=== PATIENT | male | born 2000 | race Caucasian/White ===

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

== ENCOUNTER 2018-07-26 08:34 | Emergency (ER) | payer BC, OTHER ==
[2018-07-26 08:46] VITALS: BP 88/57; PULSE 76; RESP 16; TEMP 98.3
--- NOTE | 2018-07-26 09:10 | ED ---
General Adult HPI - General Chief complaint: Urogenital Stated complaint: Cannot Urinate Source: family, RN notes reviewed Mode of arrival: wheelchair Limitations: altered mental status - History of Present Illness Initial comments: This a 17-year-old male with mother with a history of cerebral palsy presents emergency Department with complaint of not urinating. Mom states that he usually does not urinate for several hours or maybe only once or twice a day but states that he woke up with a dry diaper on Friday mom states that he still has not gone today. Mom states that he does retain quite a bit. She states that when he finally goes; was everywhere and soaks through his diaper. Patient appears to be slightly uncomfortable. No fever or chills a feeding well. Mom states his been no change in his mentation. Mom states that she is also been dealing with on-and-off rash and which I think is medication induced. Patient states that it comes and goes in different areas and has not bothered by it. Mother states that he does have some underlying constipation though his been going on a regular basis. - Related Data Home Medications Medication Instructions Recorded Confirmed Baclofen [Lioresal] 30 mg PEG/G-TUBE TID 06/27/16 11/19/16 Clobazam [Onfi] 15 mg PEG/G-TUBE BID 06/27/16 11/19/16 Polyethylene Glycol 3350 [Miralax] 17 - 22 gm PEG/G-TUBE DAILY PRN 06/27/16 11/19/16 Rufinamide [Banzel] 1,000 mg PEG/G-TUBE BID 06/27/16 11/19/16 lamoTRIgine [LaMICtal] 400 mg PEG/G-TUBE BID 06/27/16 11/19/16 levETIRAcetam [Keppra] 1,500 mg PEG/G-TUBE HS 06/27/16 11/19/16 levETIRAcetam [Keppra] 2,000 mg PEG/G-TUBE QAM 06/27/16 11/19/16 Albuterol Nebulized [Ventolin 2.5 mg INHALATION RT-BID PRN 11/19/16 11/19/16 Nebulized] Doxycycline Hyclate [Vibramycin] 100 mg PO BID 11/19/16 11/19/16 Lansoprazole [Prevacid] 30 mg PEG/G-TUBE DAILY 11/19/16 11/19/16 Mupirocin 2% Oint [Bactroban 2% 1 applic TOPICAL DAILY PRN 11/19/16 11/19/16 Oint] Nystatin 100,000Unit/gm Cream 1 applic TOPICAL DAILY PRN 11/19/16 11/19/16 [Mycostatin Cream] Ondansetron [Zofran ODT] 8 mg PO Q8HR PRN 11/19/16 11/19/16 Previous Rx's Medication Instructions Recorded Amoxic-Pot Clav 400-57Mg/5Ml 5 ml PO Q8H #150 bottle 11/19/16 [Augmentin 400-57 mg/5 ml Liquid] Allergies Allergy/AdvReac Type Severity Reaction Status Date / Time No Known Allergies Allergy Verified 07/26/18 08:46 Review of Systems ROS Statement: Those systems with pertinent positive or pertinent negative responses have been documented in the HPI. ROS Other: All systems not noted in ROS Statement are negative. Past Medical History Past Medical History: GERD/Reflux, Seizure Disorder Additional Past Medical History / Comment(s): CP, seizure disorder, failure to thrive, feeding tube. History of Any Multi-Drug Resistant Organisms: None Reported Additional Past Surgical History / Comment(s): feeding tube Past Psychological History: No Psychological Hx Reported Smoking Status: Never smoker Past Alcohol Use History: None Reported Past Drug Use History: None Reported General Exam Limitations: altered mental status General appearance: alert, in no apparent distress Head exam: Present: atraumatic, normocephalic, normal inspection Respiratory exam: Present: normal lung sounds bilaterally. Absent: respiratory distress, wheezes, rales, rhonchi, stridor Cardiovascular Exam: Present: regular rate, normal rhythm, normal heart sounds. Absent: systolic murmur, diastolic murmur, rubs, gallop, clicks GI/Abdominal exam: Present: soft, distended, tenderness (Minimal suprapubic ), normal bowel sounds. Absent: guarding, rebound, rigid Skin exam: Present: warm, dry, intact, normal color. Absent: rash Course Vital Signs 07/26/18 08:42 Temperature 98.3 F Pulse Rate 76 Respiratory 16 Rate Blood Pressure 88/57 O2 Sat by Pulse 100 Oximetry Medical Decision Making - Medical Decision Making 17-year-old male presents from for unable to urinate. Patient does have a history of cerebral palsy Robles catheter was placed, 1400mls of urine out. Patient is otherwise stable be discharged. - Lab Data Lab Results 07/26/18 Range/Units 10:00 Urine Color Yellow Urine Appearance Clear (Clear) Urine pH 6.0 (5.0-8.0) Ur Specific [place] 1.024 (1.001-1.035) Urine Protein Negative (Negative) Urine Glucose (UA) Negative (Negative) Urine Ketones Negative (Negative) Urine Blood Negative (Negative) Urine Nitrite Negative (Negative) Urine Bilirubin Negative (Negative) Urine Urobilinogen <2.0 (<2.0) mg/dL Ur Leukocyte Esterase Negative (Negative) Disposition Clinical Impression: Urinary retention Disposition: HOME SELF-CARE Condition: Stable Instructions (If sedation given, give patient instructions): Urinary Retention in Men (ED) Additional Instructions: Please return to the Emergency Department if symptoms worsen or any other concerns. Is patient prescribed a controlled substance at d/c from ED?: No Referrals: Kirk Avalos MD [Primary Care Provider] - 1-2 days Solo Campo MD [STAFF PHYSICIAN] - 1-2 days Time of Disposition: 11:13
[2018-07-26 10:49] LABS: Appearance,Urine Clear (Clear); Bilirubin,Urine Negative (Negative); Blood,Urine Negative (Negative); Color,Urine Yellow; Glucose,Urine (UA) Negative (Negative); Ketones,Urine Negative (Negative); Leukocyte Esterase,Urine Negative (Negative); Nitrite,Urine Negative (Negative); Protein,Urine Negative (Negative); Specific Gravity,Urine 1.024 (1.001-1.035); Urobilinogen,Urine <2.0 mg/dL (<2.0)
== END 2018-07-26 12:04 | disposition home or self-care (01) ==
LOC: EC 08:34
DX: N39.0 Urinary tract infection, site not specified (principal); G40.909 Epilepsy, unspecified, not intractable, without status epilepticus; Z79.899 Other long term (current) drug therapy; Z86.69 Personal history of other diseases of the nervous system and sense organs
CPT/HCPCS: 51702; 81003; 99283

== ENCOUNTER 2018-09-05 12:07 | Emergency (ER) | payer BC, OTHER ==
[2018-09-05 12:38] VITALS: BP 102/68; PULSE 62; RESP 18; TEMP 97.8
[2018-09-05 13:43] LABS: Amorphous Sediment,Urine Moderate /hpf; Appearance,Urine Cloudy (Clear); Bilirubin,Urine Negative (Negative); Blood,Urine Negative (Negative); Calcium Oxalate Crystals,Urine Occasional /hpf; Color,Urine Yellow; Glucose,Urine (UA) Negative (Negative); Ketones,Urine Negative (Negative); Leukocyte Esterase,Urine Negative (Negative); Mucus,Urine Few /hpf; Nitrite,Urine Negative (Negative); PH, Urine 6.5 (5.0-8.0); Protein,Urine Trace (Negative); Specific Gravity,Urine 1.031 (1.001-1.035); Squamous Epithelial Cell,Urine 1 /hpf (0-4); Urobilinogen,Urine <2.0 mg/dL (<2.0)
--- NOTE | 2018-09-05 13:57 | ED ---
General Adult HPI - General Chief complaint: Urogenital Stated complaint: No urine output >38 hrs Time Seen by Provider: 09/05/18 12:41 Source: family, RN notes reviewed Mode of arrival: wheelchair Limitations: altered mental status, physical limitation - History of Present Illness Initial comments: 18-year-old male with cerebral palsy history presents to the emergency department for a chief complaint of urinary retention 48 hours. Father states that this does happen occasionally. States he usually only urinates one to 2 times per day. However this isn't normal for him. Patient restraints the same thing a few weeks ago and had a straight catheterization done. Father denies any signs of distress and the patient, denies any fevers or chills.Patient has no other complaints at this time including shortness of breath, chest pain, abdominal pain, nausea or vomiting, headache, or visual changes. - Related Data Home Medications Medication Instructions Recorded Confirmed Baclofen [Lioresal] 30 mg PEG/G-TUBE TID 06/27/16 11/19/16 Clobazam [Onfi] 15 mg PEG/G-TUBE BID 06/27/16 11/19/16 Polyethylene Glycol 3350 [Miralax] 17 - 22 gm PEG/G-TUBE DAILY PRN 06/27/16 11/19/16 Rufinamide [Banzel] 1,000 mg PEG/G-TUBE BID 06/27/16 11/19/16 lamoTRIgine [LaMICtal] 400 mg PEG/G-TUBE BID 06/27/16 11/19/16 levETIRAcetam [Keppra] 1,500 mg PEG/G-TUBE HS 06/27/16 11/19/16 levETIRAcetam [Keppra] 2,000 mg PEG/G-TUBE QAM 06/27/16 11/19/16 Albuterol Nebulized [Ventolin 2.5 mg INHALATION RT-BID PRN 11/19/16 11/19/16 Nebulized] Doxycycline Hyclate [Vibramycin] 100 mg PO BID 11/19/16 11/19/16 Lansoprazole [Prevacid] 30 mg PEG/G-TUBE DAILY 11/19/16 11/19/16 Mupirocin 2% Oint [Bactroban 2% 1 applic TOPICAL DAILY PRN 11/19/16 11/19/16 Oint] Nystatin 100,000Unit/gm Cream 1 applic TOPICAL DAILY PRN 11/19/16 11/19/16 [Mycostatin Cream] Ondansetron [Zofran ODT] 8 mg PO Q8HR PRN 11/19/16 11/19/16 Previous Rx's Medication Instructions Recorded Amoxic-Pot Clav 400-57Mg/5Ml 5 ml PO Q8H #150 bottle 11/19/16 [Augmentin 400-57 mg/5 ml Liquid] Allergies Allergy/AdvReac Type Severity Reaction Status Date / Time No Known Allergies Allergy Verified 09/05/18 12:38 Review of Systems ROS Statement: Those systems with pertinent positive or pertinent negative responses have been documented in the HPI. ROS Other: All systems not noted in ROS Statement are negative. Past Medical History Past Medical History: GERD/Reflux, Seizure Disorder Additional Past Medical History / Comment(s): CP, seizure disorder, failure to thrive, feeding tube. History of Any Multi-Drug Resistant Organisms: None Reported Additional Past Surgical History / Comment(s): feeding tube Past Psychological History: No Psychological Hx Reported Smoking Status: Never smoker Past Alcohol Use History: None Reported Past Drug Use History: None Reported General Exam Limitations: altered mental status, physical limitation General appearance: alert, in no apparent distress Head exam: Present: atraumatic, normocephalic, normal inspection Eye exam: Present: normal appearance ENT exam: Present: normal exam, mucous membranes moist Neck exam: Present: normal inspection, full ROM. Absent: tenderness, meningismus, lymphadenopathy Respiratory exam: Present: normal lung sounds bilaterally. Absent: respiratory distress, wheezes, rales, rhonchi, stridor Cardiovascular Exam: Present: regular rate, normal rhythm, normal heart sounds. Absent: systolic murmur, diastolic murmur, rubs, gallop, clicks GI/Abdominal exam: Present: soft, normal bowel sounds. Absent: distended, tenderness, guarding, rebound, rigid Neurological exam: Present: alert Course Vital Signs 09/05/18 12:32 Temperature 97.8 F Pulse Rate 62 Respiratory 18 Rate Blood Pressure 102/68 O2 Sat by Pulse 98 Oximetry Medical Decision Making - Medical Decision Making 18-year-old male presents to the emergency department for a chief complaint of urinary retention. Patient has had no output for about 48 hours. Patient does have a history of retention. Exam is unremarkable. Discussed with father that at this time is recommended to place Robles catheter and follow up with urology. However father prefers to have straight catheterization done and does not want indwelling at this time. I did discuss the importance of returning patient does not have any urinary output for the next 24 hours for and when catheter and he does agree to this. 1100 mL was expelled from the bladder using a straight catheterization. Urine was tested, calcium oxide crystals present. No evidence of infection however urine will be cultured. Patient will be given urology referral and will follow up with primary care. Will return here if he does not have urinary output in the next 24 hours. - Lab Data Lab Results 09/05/18 Range/Units 13:26 Urine Color Yellow Urine Appearance Cloudy (Clear) Urine pH 6.5 (5.0-8.0) Ur Specific [place] 1.031 (1.001-1.035) Urine Protein Trace H (Negative) Urine Glucose (UA) Negative (Negative) Urine Ketones Negative (Negative) Urine Blood Negative (Negative) Urine Nitrite Negative (Negative) Urine Bilirubin Negative (Negative) Urine Urobilinogen <2.0 (<2.0) mg/dL Ur Leukocyte Esterase Negative (Negative) Ur Squamous Epith Cells 1 (0-4) /hpf Calcium Oxalate Crystal Occasional H (None) /hpf Amorphous Sediment Moderate H (None) /hpf Urine Mucus Few H (None) /hpf Disposition Clinical Impression: Urinary retention Disposition: HOME SELF-CARE Condition: Good Instructions (If sedation given, give patient instructions): Urinary Retention in Men (ED) Additional Instructions: Please follow up with urology in 1-2 days. If patient does not have urinary output in the next 24 hours return for an indwelling catheter. Is patient prescribed a controlled substance at d/c from ED?: No Referrals: Kirk Avalos MD [Primary Care Provider] - 1-2 days Time of Disposition: 13:55
== END 2018-09-05 14:03 | disposition home or self-care (01) ==
LOC: EC 12:07
DX: R33.9 Retention of urine, unspecified (principal); K21.9 Gastro-esophageal reflux disease without esophagitis; G40.909 Epilepsy, unspecified, not intractable, without status epilepticus; G80.9 Cerebral palsy, unspecified; Z79.899 Other long term (current) drug therapy
CPT/HCPCS: 81001; 87086; 99283

== ENCOUNTER 2018-10-05 16:45 | Emergency (ER) | payer BC, OTHER ==
[2018-10-05 17:03] VITALS: BP 118/78; PULSE 65; RESP 18; TEMP 97.8
--- NOTE | 2018-10-05 18:36 | ED ---
General Adult HPI - General Chief complaint: Urogenital Stated complaint: not urinating Time Seen by Provider: 10/05/18 17:05 Source: patient, RN notes reviewed Mode of arrival: ambulatory Limitations: physical limitation - History of Present Illness Initial comments: 18-year-old male with cerebral palsy, seizure disorder presents to the emergency department for a chief complaint of urinary retention. Mother states that he has not urinated for 2 days. States this is sometimes happening intermittently over the past several months. Mother states patient does not seem to be in any distress and is smiling. States that he saw the urologist who ordered an ultrasound for 2 days from now. States that he needs his bladder for this time. Mother requesting ultrasound be performed through the emergency department rather than transferring him back to the hospital. Mother states she also just wants a straight cath performed, does not want an indwelling catheter placed which she states the urologist agrees with.Patient has no other complaints at this time including shortness of breath, chest pain, abdominal pain, nausea or vomiting, headache, or visual changes. - Related Data Home Medications Medication Instructions Recorded Confirmed Baclofen [Lioresal] 30 mg PEG/G-TUBE TID 06/27/16 11/19/16 Clobazam [Onfi] 15 mg PEG/G-TUBE BID 06/27/16 11/19/16 Polyethylene Glycol 3350 [Miralax] 17 - 22 gm PEG/G-TUBE DAILY PRN 06/27/16 11/19/16 Rufinamide [Banzel] 1,000 mg PEG/G-TUBE BID 06/27/16 11/19/16 lamoTRIgine [LaMICtal] 400 mg PEG/G-TUBE BID 06/27/16 11/19/16 levETIRAcetam [Keppra] 1,500 mg PEG/G-TUBE HS 06/27/16 11/19/16 levETIRAcetam [Keppra] 2,000 mg PEG/G-TUBE QAM 06/27/16 11/19/16 Albuterol Nebulized [Ventolin 2.5 mg INHALATION RT-BID PRN 11/19/16 11/19/16 Nebulized] Doxycycline Hyclate [Vibramycin] 100 mg PO BID 11/19/16 11/19/16 Lansoprazole [Prevacid] 30 mg PEG/G-TUBE DAILY 11/19/16 11/19/16 Mupirocin 2% Oint [Bactroban 2% 1 applic TOPICAL DAILY PRN 11/19/16 11/19/16 Oint] Nystatin 100,000Unit/gm Cream 1 applic TOPICAL DAILY PRN 11/19/16 11/19/16 [Mycostatin Cream] Ondansetron [Zofran ODT] 8 mg PO Q8HR PRN 11/19/16 11/19/16 Previous Rx's Medication Instructions Recorded Amoxic-Pot Clav 400-57Mg/5Ml 5 ml PO Q8H #150 bottle 11/19/16 [Augmentin 400-57 mg/5 ml Liquid] Allergies Allergy/AdvReac Type Severity Reaction Status Date / Time No Known Allergies Allergy Verified 10/05/18 17:03 Review of Systems ROS Statement: Those systems with pertinent positive or pertinent negative responses have been documented in the HPI. ROS Other: All systems not noted in ROS Statement are negative. Past Medical History Past Medical History: GERD/Reflux, Seizure Disorder Additional Past Medical History / Comment(s): CP, seizure disorder, failure to thrive, feeding tube. History of Any Multi-Drug Resistant Organisms: None Reported Additional Past Surgical History / Comment(s): feeding tube Past Psychological History: No Psychological Hx Reported Smoking Status: Never smoker Past Alcohol Use History: None Reported Past Drug Use History: None Reported General Exam Limitations: physical limitation General appearance: alert, in no apparent distress Head exam: Present: atraumatic, normocephalic, normal inspection Eye exam: Present: normal appearance, PERRL, EOMI. Absent: scleral icterus, conjunctival injection, periorbital swelling ENT exam: Present: normal exam, mucous membranes moist Neck exam: Present: normal inspection, full ROM. Absent: tenderness, meningismus, lymphadenopathy Respiratory exam: Present: normal lung sounds bilaterally. Absent: respiratory distress, wheezes, rales, rhonchi, stridor Cardiovascular Exam: Present: regular rate, normal rhythm, normal heart sounds. Absent: systolic murmur, diastolic murmur, rubs, gallop, clicks GI/Abdominal exam: Present: soft, normal bowel sounds. Absent: distended, tenderness, guarding, rebound, rigid Neurological exam: Present: alert Psychiatric exam: Present: normal affect, normal mood. Absent: agitated Course Vital Signs 10/05/18 16:58 Temperature 97.8 F Pulse Rate 65 Respiratory 18 Rate Blood Pressure 118/78 O2 Sat by Pulse 96 Oximetry Medical Decision Making - Medical Decision Making 18-year-old male with a past medical history of cerebral palsy, neurogenic bladder presents to the emergency department for an inability to urinate for 2 days. this is a recurring problem with patient. Patient is currently being evaluated by urology for this. Mother states they would like straight cath performed. Mother also requesting an ultrasound because patient is scheduled for this in a few days' outpatient however the urologist wanted him to a full bladder. States it also states her a lot of difficulty with transportation. If ultrasound was performed which showed a dilated bladder without renal mass obstruction or hydronephrosis. Patient was straight cathed, 1100 mL obtained. Mother does not want Robles catheter at this time. Patient will follow up with urology in 1-2 days. She will return here if he has any worsening symptoms. Disposition Clinical Impression: Urinary retention Disposition: HOME SELF-CARE Condition: Good Instructions (If sedation given, give patient instructions): Urinary Retention in Men (ED) Additional Instructions: Please follow up with urology in 1-2 days. If patient continues to have problems urinating return to the emergency department. Return for any other worsening symptoms. Is patient prescribed a controlled substance at d/c from ED?: No Referrals: Kirk Avalos MD [Primary Care Provider] - 1-2 days Time of Disposition: 18:45
--- NOTE | 2018-10-05 18:41 | US ---
EXAMINATION TYPE: US kidneys/renal and bladder DATE OF EXAM: 10/05/2018 COMPARISON: NONE CLINICAL HISTORY: Pain. Unable to urinate for 2 days.Exam limitations patient has cerebral palsy had to scan prone for the kidneys.Patient incontinent. EXAM MEASUREMENTS: Right Kidney: 8.6 x 4.0 x 4.0 cm Left Kidney: 8.9 x 3.9 x 4.3 cm Right Kidney: No hydronephrosis or masses seen Left Kidney: No hydronephrosis or masses seen Bladder: Anechoic 1335ml of fluid seen. Bilateral Jets seen: No There is no evidence for hydronephrosis at this point in time. No nephrolithiasis is seen. No rocky s are identified. The urinary bladder is anechoic. Urinary bladder is distended 1335 ml of fluid seen. ER doctor is going to cath patient. IMPRESSION: Dilated urinary bladder. No renal mass or obstruction. No hydronephrosis.
== END 2018-10-05 18:55 | disposition home or self-care (01) ==
LOC: EC 16:45
DX: R33.9 Retention of urine, unspecified (principal); N32.89 Other specified disorders of bladder; G40.909 Epilepsy, unspecified, not intractable, without status epilepticus; K21.9 Gastro-esophageal reflux disease without esophagitis; G80.9 Cerebral palsy, unspecified; Z79.899 Other long term (current) drug therapy
CPT/HCPCS: 51701; 76770; 99283

== ENCOUNTER → 2018-12-15 | Outpatient (CLI) | payer BC, OTHER ==
[2018-12-15 10:41] LABS: HCT 42.4 % (39.0-53.0); HGB 14.2 gm/dL (13.0-17.5); MCH 31.4 pg (25.0-35.0); MCHC 33.5 g/dL (31.0-37.0); MCV 93.7 fL (80.0-100.0); Mean Platelet Volume 7.5; Platelet Count 252 k/uL (150-450); RBC 4.52 m/uL (4.30-5.90); RDW 13.9 % (11.5-15.5); WBC 8.8 k/uL (4.0-11.0)
[2018-12-15 15:26] LABS: Anion Gap 7.6 mmol/L (4.00-12.00); Calcium 9.4 mg/dL (8.7-10.3); Carbon Dioxide 32.4 mmol/L (21.6-31.8); Potassium 4.4 mmol/L (3.5-5.5)
== END | disposition home or self-care (01) ==
LOC: LABWHC1 09:39
PROVIDERS: ATTEND Psychiatry & Neurology Neurology
DX: G93.49 Other encephalopathy (principal); Q02 Microcephaly; G40.109 Localization-related (focal) (partial) symptomatic epilepsy and epileptic syndromes with simple partial seizures, not intractable, without status epilepticus; G80.0 Spastic quadriplegic cerebral palsy; R41.89 Other symptoms and signs involving cognitive functions and awareness
CPT/HCPCS: 36415; 80051; 80177; 82306; 82310; 84450; 84520; 85027

== ENCOUNTER 2019-06-18 09:32 | Emergency (ER) | payer BC, OTHER ==
[2019-06-18 09:49] VITALS: BP 100/66; PULSE 77; RESP 20; TEMP 97.9
[2019-06-18 10:41] LABS: Appearance,Urine Clear (Clear); Bilirubin,Urine Negative (Negative); Blood,Urine Negative (Negative); Color,Urine Yellow; Glucose,Urine (UA) Negative (Negative); Ketones,Urine Negative (Negative); Leukocyte Esterase,Urine Negative (Negative); Nitrite,Urine Negative (Negative); PH, Urine 6.5 (5.0-8.0); Protein,Urine Negative (Negative); Specific Gravity,Urine 1.023 (1.001-1.035); Urobilinogen,Urine <2.0 mg/dL (<2.0)
--- NOTE | 2019-06-18 11:03 | ED ---
Male Urogenital HPI - General Chief complaint: Urogenital Stated complaint: unable to urinate Time Seen by Provider: 06/18/19 09:50 Source: family Mode of arrival: ambulatory Limitations: no limitations - History of Present Illness Initial comments: 18-year-old male with history of developmental delay since with chronic incontinence presents emergency department for urinary retention. Father states patient has not had urine output in the past 24 hours. He states he does not appear to be in pain. He is concerned he is retaining urine. He states this is happened in the past and they have had to straight cath patient. They state there is never been an indwelling catheter patient has been evaluated for neurogenic bladder by Dr. Garcia. There is no current plan patient is on no medications urinary retention he states this happened 2 or 4 times in the last 11 months. Father states he has not noticed any fevers or other abnormalities. Upon arrival patient appears well and nontoxic in appearance afebrile. - Related Data Home Medications Medication Instructions Recorded Confirmed Baclofen [Lioresal] 30 mg PEG/G-TUBE TID 06/27/16 11/19/16 Clobazam [Onfi] 15 mg PEG/G-TUBE BID 06/27/16 11/19/16 Polyethylene Glycol 3350 [Miralax] 17 - 22 gm PEG/G-TUBE DAILY PRN 06/27/16 11/19/16 Rufinamide [Banzel] 1,000 mg PEG/G-TUBE BID 06/27/16 11/19/16 lamoTRIgine [LaMICtal] 400 mg PEG/G-TUBE BID 06/27/16 11/19/16 levETIRAcetam [Keppra] 1,500 mg PEG/G-TUBE HS 06/27/16 11/19/16 levETIRAcetam [Keppra] 2,000 mg PEG/G-TUBE QAM 06/27/16 11/19/16 Albuterol Nebulized [Ventolin 2.5 mg INHALATION RT-BID PRN 11/19/16 11/19/16 Nebulized] Doxycycline Hyclate [Vibramycin] 100 mg PO BID 11/19/16 11/19/16 Lansoprazole [Prevacid] 30 mg PEG/G-TUBE DAILY 11/19/16 11/19/16 Mupirocin 2% Oint [Bactroban 2% 1 applic TOPICAL DAILY PRN 11/19/16 11/19/16 Oint] Nystatin 100,000Unit/gm Cream 1 applic TOPICAL DAILY PRN 11/19/16 11/19/16 [Mycostatin Cream] Ondansetron [Zofran ODT] 8 mg PO Q8HR PRN 11/19/16 11/19/16 Previous Rx's Medication Instructions Recorded Amoxic-Pot Clav 400-57Mg/5Ml 5 ml PO Q8H #150 bottle 11/19/16 [Augmentin 400-57 mg/5 ml Liquid] Allergies Allergy/AdvReac Type Severity Reaction Status Date / Time No Known Allergies Allergy Verified 06/18/19 09:49 Review of Systems ROS Statement: Those systems with pertinent positive or pertinent negative responses have been documented in the HPI. ROS Other: All systems not noted in ROS Statement are negative. Past Medical History Past Medical History: GERD/Reflux, Seizure Disorder Additional Past Medical History / Comment(s): CP, seizure disorder, failure to thrive, feeding tube. History of Any Multi-Drug Resistant Organisms: None Reported Additional Past Surgical History / Comment(s): feeding tube Past Psychological History: No Psychological Hx Reported Smoking Status: Never smoker Past Alcohol Use History: None Reported Past Drug Use History: None Reported General Exam - General Exam Comments Initial Comments: General: The patient is awake and alert, in no distress Eye: Pupils are equal, round and reactive to light, extra-ocular movements are intact. Ears, nose, mouth and throat: There are moist mucous membranes and no oral lesions. Gastrointestinal: Soft, non-distended, non-tender abdomen without masses or organomegaly noted. There is no rebound or guarding present. Musculoskeletal: Normal ROM, no tenderness. Strength 5/5. Sensation intact. Pulses equal bilaterally 2+. Neurological: Obvious motor deficits, wheel chair bound, contractures of UE and LE, limb atrophy Skin: Skin is warm and dry and no rashes or lesions are noted. Psychiatric: Nonverbal Limitations: no limitations Course Vital Signs 06/18/19 09:46 Temperature 97.9 F Pulse Rate 77 Respiratory 20 Rate Blood Pressure 100/66 O2 Sat by Pulse 100 Oximetry Medical Decision Making - Medical Decision Making 18-year-old male presenting for urinary retention with father. No fevers patient does not appear toxic. 500+ milliliters on bladder scan urinary straight catheterization was performed father did not want indwelling catheter at this time patient shows no signs of discomfort no grimacing or protective posturing. Urinalysis unremarkable this time the patient is stable for discharge with strict return parameters for decreased urine output father is agreeable discussed case attending provider patient was discharged appearing well - Lab Data Lab Results 06/18/19 Range/Units 10:25 Urine Color Yellow Urine Appearance Clear (Clear) Urine pH 6.5 (5.0-8.0) Ur Specific [place] 1.023 (1.001-1.035) Urine Protein Negative (Negative) Urine Glucose (UA) Negative (Negative) Urine Ketones Negative (Negative) Urine Blood Negative (Negative) Urine Nitrite Negative (Negative) Urine Bilirubin Negative (Negative) Urine Urobilinogen <2.0 (<2.0) mg/dL Ur Leukocyte Esterase Negative (Negative) Disposition Clinical Impression: Urinary retention Disposition: HOME SELF-CARE Condition: Good Instructions (If sedation given, give patient instructions): Urinary Retention in Men (ED) Additional Instructions: Please use medication as discussed. Please follow-up with family doctor in the next 2 days, and urology in next week. Please return to emergency room if the symptoms increase or worsen or for any other concerns. Is patient prescribed a controlled substance at d/c from ED?: No Referrals: Kirk Avalos MD [Primary Care Provider] - 1-2 days Rojelio Garcia MD [STAFF PHYSICIAN] - 1-2 days Time of Disposition: 11:02
== END 2019-06-18 11:09 | disposition home or self-care (01) ==
LOC: EC 09:32
DX: R33.9 Retention of urine, unspecified (principal); Z99.3 Dependence on wheelchair; M62.59 Muscle wasting and atrophy, not elsewhere classified, multiple sites; K21.9 Gastro-esophageal reflux disease without esophagitis; G40.909 Epilepsy, unspecified, not intractable, without status epilepticus; Z79.899 Other long term (current) drug therapy; Z93.1 Gastrostomy status
CPT/HCPCS: 51701; 51798; 81003; 99284

== ENCOUNTER → 2020-03-01 | Outpatient (CLI) | payer BC, OTHER ==
[2020-03-01 10:28] LABS: HGB 13.1 gm/dL (13.0-17.5); MCH 30.6 pg (25.0-35.0); MCHC 32.7 g/dL (31.0-37.0); MCV 93.3 fL (80.0-100.0); Mean Platelet Volume 9.5; Platelet Count 198 k/uL (150-450); RBC 4.29 m/uL (4.30-5.90); RDW 12.5 % (11.5-15.5); WBC 8.1 k/uL (3.8-10.6)
[2020-03-01 18:39] LABS: Anion Gap 7.4 mmol/L (4.00-12.00); Calcium 9.8 mg/dL (8.7-10.3); Carbon Dioxide 32.6 mmol/L (21.6-31.8); Potassium 4.2 mmol/L (3.5-5.5)
[2020-03-02 07:49] LABS: Levetiracetam (Keppra) 53.9 ug/mL (3.0-60.0)
== END | disposition home or self-care (01) ==
LOC: LABWHC1 08:49
PROVIDERS: ATTEND Psychiatry & Neurology Neurology
DX: G40.109 Localization-related (focal) (partial) symptomatic epilepsy and epileptic syndromes with simple partial seizures, not intractable, without status epilepticus (principal); G93.49 Other encephalopathy; R41.89 Other symptoms and signs involving cognitive functions and awareness; Q02 Microcephaly
CPT/HCPCS: 36415; 80051; 80177; 80346; 82306; 82310; 82465; 84520; 85027

== ENCOUNTER → 2020-07-18 | Outpatient (CLI) | payer BC, OTHER ==
[2020-07-18 15:58] LABS: HCT 46.4 % (39.6-50.0); HGB 15.3 g/dL (13.0-17.0); MCH 31.2 pg (27.0-32.0); MCV 94.7 fL (80.0-97.0); Mean Platelet Volume 12.5 fL (9.5-12.2); Platelet Count 220 X 10*3/uL (140-440); RDW 12.4 % (11.5-14.5); WBC 5.98 X 10*3/uL (4.50-10.00)
[2020-07-18 16:26] LABS: Anion Gap 8.4 mmol/L (4.00-12.00); Calcium 9.7 mg/dL (8.7-10.3); Carbon Dioxide 30.6 mmol/L (21.6-31.8); Potassium 4.3 mmol/L (3.5-5.5)
[2020-07-19 08:38] LABS: Levetiracetam (Keppra) 41.6 ug/mL (3.0-60.0)
== END | disposition home or self-care (01) ==
LOC: LABWHC1 08:54
PROVIDERS: ATTEND Psychiatry & Neurology Neurology
DX: G40.109 Localization-related (focal) (partial) symptomatic epilepsy and epileptic syndromes with simple partial seizures, not intractable, without status epilepticus (principal); G93.49 Other encephalopathy; R41.89 Other symptoms and signs involving cognitive functions and awareness; Q02 Microcephaly
CPT/HCPCS: 36415; 80051; 80177; 80346; 82306; 82310; 82465; 84520; 85027

== ENCOUNTER 2020-08-28 21:21 | Emergency (ER) | payer BC, OTHER ==
[2020-08-28 21:35] VITALS: BP 111/74; PULSE 81; RESP 18; TEMP 97.4
--- NOTE | 2020-08-28 21:53 | ED ---
Recheck HPI - General Chief Complaint: Recheck/Abnormal Lab/Rx Stated Complaint: swollen abdomen Time Seen by Provider: 08/28/20 21:40 Source: family, RN notes reviewed Mode of arrival: wheelchair Limitations: no limitations - History of Present Illness Initial Comments: Patient is a 19-year-old male that presents with his father and mother for abdominal distention, possible constipation and urinary retention. Parents do note that he does have a history of cerebral palsy and is wheelchair bound and is in need of total care. They note that he has been only urinating 1 time per day and/or flooding if he does not go that one time. They do note that he has not had a normal bowel movement for himself over the past 4 days and that over the last 4 days his abdomen has become slightly distended. They wanted him evaluated for constipation and possible urinary retention. He was in no apparent distress or pain while sitting up in his chair during the exam interview. Patient denied any other symptoms or complaints. - Related Data Home Medications Medication Instructions Recorded Confirmed Baclofen [Lioresal] 30 mg PEG/G-TUBE TID 06/27/16 11/19/16 Clobazam [Onfi] 15 mg PEG/G-TUBE BID 06/27/16 11/19/16 Polyethylene Glycol 3350 [Miralax] 17 - 22 gm PEG/G-TUBE DAILY PRN 06/27/16 11/19/16 Rufinamide [Banzel] 1,000 mg PEG/G-TUBE BID 06/27/16 11/19/16 lamoTRIgine [LaMICtal] 400 mg PEG/G-TUBE BID 06/27/16 11/19/16 levETIRAcetam [Keppra] 1,500 mg PEG/G-TUBE HS 06/27/16 11/19/16 levETIRAcetam [Keppra] 2,000 mg PEG/G-TUBE QAM 06/27/16 11/19/16 Albuterol Nebulized [Ventolin 2.5 mg INHALATION RT-BID PRN 11/19/16 11/19/16 Nebulized] Doxycycline Hyclate [Vibramycin] 100 mg PO BID 11/19/16 11/19/16 Lansoprazole [Prevacid] 30 mg PEG/G-TUBE DAILY 11/19/16 11/19/16 Mupirocin 2% Oint [Bactroban 2% 1 applic TOPICAL DAILY PRN 11/19/16 11/19/16 Oint] Nystatin 100,000Unit/gm Cream 1 applic TOPICAL DAILY PRN 11/19/16 11/19/16 [Mycostatin Cream] Ondansetron [Zofran ODT] 8 mg PO Q8HR PRN 11/19/16 11/19/16 Previous Rx's Medication Instructions Recorded Amoxic-Pot Clav 400-57Mg/5Ml 5 ml PO Q8H #150 bottle 11/19/16 [Augmentin 400-57 mg/5 ml Liquid] Allergies Allergy/AdvReac Type Severity Reaction Status Date / Time No Known Allergies Allergy Verified 08/28/20 21:30 Review of Systems ROS Statement: Those systems with pertinent positive or pertinent negative responses have been documented in the HPI. ROS Other: All systems not noted in ROS Statement are negative. Past Medical History Past Medical History: GERD/Reflux, Seizure Disorder Additional Past Medical History / Comment(s): CP, seizure disorder, failure to thrive, feeding tube. non-verbal History of Any Multi-Drug Resistant Organisms: None Reported Past Surgical History: No Surgical Hx Reported Additional Past Surgical History / Comment(s): feeding tube Past Psychological History: No Psychological Hx Reported Smoking Status: Former smoker Past Alcohol Use History: None Reported Past Drug Use History: None Reported General Exam Limitations: physical limitation General appearance: alert, in no apparent distress Head exam: Present: atraumatic, normocephalic, normal inspection Eye exam: Present: normal appearance, PERRL, EOMI. Absent: scleral icterus, conjunctival injection, periorbital swelling Respiratory exam: Present: normal lung sounds bilaterally. Absent: respiratory distress, wheezes, rales, rhonchi, stridor Cardiovascular Exam: Present: regular rate, normal rhythm, normal heart sounds. Absent: systolic murmur, diastolic murmur, rubs, gallop, clicks GI/Abdominal exam: Present: soft, distended, normal bowel sounds. Absent: tenderness, guarding, rebound, rigid Extremities exam: Present: normal inspection, normal capillary refill. Absent: full ROM, tenderness, pedal edema, joint swelling, calf tenderness Neurological exam: Present: alert Skin exam: Present: warm, dry, intact, normal color. Absent: rash Course Vital Signs 08/28/20 21:30 Temperature 97.4 F L Pulse Rate 81 Respiratory 18 Rate Blood Pressure 111/74 O2 Sat by Pulse 99 Oximetry Medical Decision Making - Medical Decision Making 19-year-old male with possible constipation and urinary retention. KUB, CBC, CMP, urinalysis, bladder scan, urinary straight catheterization ordered. bladder scan showed 450 mL a urine, patient tolerated straight catheterization well. Labs unremarkable Patient declined rectal exam as they do it frequently home to make sure he is not impacted. Case discussed with Dr. Sewell patient can discharge home. - Lab Data Result diagrams: 08/28/20 22:02 08/28/20 22:02 Lab Results 08/28/20 08/28/20 08/28/20 Range/Units 22:02 22:02 22:02 WBC 7.5 (3.8-10.6) k/uL RBC 4.78 (4.30-5.90) m/uL Hgb 14.9 (13.0-17.5) gm/dL Hct 44.2 (39.0-53.0) % MCV 92.5 (80.0-100.0) fL MCH 31.2 (25.0-35.0) pg MCHC 33.8 (31.0-37.0) g/dL RDW 12.0 (11.5-15.5) % Plt Count 188 (150-450) k/uL MPV 9.1 Neutrophils % 47 % Lymphocytes % 33 % Monocytes % 6 % Eosinophils % 11 % Basophils % 0 % Neutrophils # 3.5 (1.3-7.7) k/uL Lymphocytes # 2.5 (1.0-4.8) k/uL Monocytes # 0.5 (0-1.0) k/uL Eosinophils # 0.9 H (0-0.7) k/uL Basophils # 0.0 (0-0.2) k/uL Sodium 142 (137-145) mmol/L Potassium 4.8 (3.5-5.1) mmol/L Chloride 100 (98-107) mmol/L Carbon Dioxide 34 H (22-30) mmol/L Anion Gap 8 mmol/L BUN 15 (9-20) mg/dL Creatinine 0.80 (0.66-1.25) mg/dL Est GFR (CKD-EPI)AfAm >90 (>60 ml/min/1.73 sqM) Est GFR (CKD-EPI)NonAf >90 (>60 ml/min/1.73 sqM) Glucose 94 (74-99) mg/dL Calcium 9.5 (8.4-10.2) mg/dL Total Bilirubin 0.4 (0.2-1.3) mg/dL AST 28 (17-59) U/L ALT 31 (4-49) U/L Alkaline Phosphatase 77 (38-126) U/L Total Protein 7.1 (6.3-8.2) g/dL Albumin 4.3 (3.5-5.0) g/dL Urine Color Yellow Urine Appearance Clear (Clear) Urine pH 6.0 (5.0-8.0) Ur Specific [place] 1.031 (1.001-1.035) Urine Protein Trace H (Negative) Urine Glucose (UA) Negative (Negative) Urine Ketones Negative (Negative) Urine Blood Negative (Negative) Urine Nitrite Negative (Negative) Urine Bilirubin Negative (Negative) Urine Urobilinogen <2.0 (<2.0) mg/dL Ur Leukocyte Esterase Negative (Negative) - Radiology Data Radiology results: report reviewed, image reviewed KUB: Large bowel gas suggest is of some ileus. There is improvement in the constipation demonstrated on the old exam. No sign of any significant constipation today. Disposition Clinical Impression: Constipation Disposition: HOME SELF-CARE Condition: Stable Instructions (If sedation given, give patient instructions): Constipation (ED) Additional Instructions: Please return to the Emergency Department if symptoms worsen or any other concerns. Continue bowel regimen at home. Can use magnesium citrate through PEG tube, follow directions on bottle. Increase fluid intake to at least 50 ounces of water per day. Follow-up with primary care. Is patient prescribed a controlled substance at d/c from ED?: No Referrals: Kirk Avalos MD [Primary Care Provider] - 1-2 days Time of Disposition: 23:22
[2020-08-28 22:13] LABS: Basophils % (A) 0 %; Eosinophils # (A) 0.9 k/uL (0-0.7); Eosinophils % (A) 11 %; HCT 44.2 % (39.0-53.0); HGB 14.9 gm/dL (13.0-17.5); Lymphocytes # (A) 2.5 k/uL (1.0-4.8); Lymphocytes % (A) 33 %; MCH 31.2 pg (25.0-35.0); MCHC 33.8 g/dL (31.0-37.0); MCV 92.5 fL (80.0-100.0); Mean Platelet Volume 9.1; Monocytes # (A) 0.5 k/uL (0-1.0); Monocytes % (A) 6 %; Neutrophils # (A) 3.5 k/uL (1.3-7.7); Neutrophils % (A) 47 %; Platelet Count 188 k/uL (150-450); RBC 4.78 m/uL (4.30-5.90); WBC 7.5 k/uL (3.8-10.6)
[2020-08-28 22:25] LABS: ALT 31 U/L (4-49); AST 28 U/L (17-59); African American GFR (CKD) >90 (>60 ml/min/1.73 sqM); Albumin 4.3 g/dL (3.5-5.0); Alkaline Phosphatase 77 U/L (38-126); Anion Gap 8 mmol/L; Blood Urea Nitrogen 15 mg/dL (9-20); Calcium 9.5 mg/dL (8.4-10.2); Carbon Dioxide 34 mmol/L (22-30); Chloride 100 mmol/L (98-107); Glucose 94 mg/dL (74-99); Non-African American GFR(CKD) >90 (>60 ml/min/1.73 sqM); Potassium 4.8 mmol/L (3.5-5.1); Sodium 142 mmol/L (137-145); Total Bilirubin 0.4 mg/dL (0.2-1.3); Total Protein 7.1 g/dL (6.3-8.2)
[2020-08-28 22:31] LABS: Appearance,Urine Clear (Clear); Bilirubin,Urine Negative (Negative); Blood,Urine Negative (Negative); Color,Urine Yellow; Glucose,Urine (UA) Negative (Negative); Ketones,Urine Negative (Negative); Leukocyte Esterase,Urine Negative (Negative); Nitrite,Urine Negative (Negative); Protein,Urine Trace (Negative); Specific Gravity,Urine 1.031 (1.001-1.035); Urobilinogen,Urine <2.0 mg/dL (<2.0)
--- NOTE | 2020-08-28 22:47 | XR ---
EXAMINATION TYPE: XR KUB portable DATE OF EXAM: 08/28/2020 COMPARISON: 11/19/2016 HISTORY: Constipation TECHNIQUE: 2 views supine FINDINGS: There is moderate amount of large bowel gas. There is fecal material in the colon without s ignificant dilation. There is no free air. There is gastrostomy tube noted. Lung bases are clear. IMPRESSION: Large bowel gas suggestive of some ileus. There is improvement in the constipation demons trated on the old exam. No sign of any significant constipation today.
== END 2020-08-28 23:36 | disposition home or self-care (01) ==
LOC: EC 21:21
DX: K59.00 Constipation, unspecified (principal); G40.909 Epilepsy, unspecified, not intractable, without status epilepticus; K21.9 Gastro-esophageal reflux disease without esophagitis; Z87.891 Personal history of nicotine dependence
CPT/HCPCS: 36415; 51798; 74018; 80053; 81003; 85025; 99284

== ENCOUNTER → 2022-04-19 | Outpatient (CLI) | payer BC, OTHER ==
[2022-04-19 15:38] LABS: Basophils # (A) 0.05 X 10*3/uL (0.00-0.10); Basophils % (A) 0.7 %; Eosinophils # (A) 0.47 X 10*3/uL (0.04-0.35); Eosinophils % (A) 6.5 %; HCT 44.8 % (39.6-50.0); HGB 14.5 g/dL (13.0-17.0); Immature Grans, Automated 0.1 %; Lymphocytes # (A) 1.76 X 10*3/uL (0.90-5.00); Lymphocytes % (A) 24.3 %; MCH 30.9 pg (27.0-32.0); MCHC 32.4 g/dL (32.0-37.0); MCV 95.5 fL (80.0-97.0); Mean Platelet Volume 12.2 fL (9.5-12.2); Monocytes # (A) 0.53 X 10*3/uL (0.20-1.00); Monocytes % (A) 7.3 %; NRBC Per 100 WBC 0 /100 WBCS (0.0-0.0); Neutrophils # (A) 4.42 X 10*3/uL (1.80-7.70); Neutrophils % (A) 61.1 %; Platelet Count 209 X 10*3/uL (140-440); RBC 4.69 X 10*6/uL (4.40-5.60); RDW 12.4 % (11.5-14.5); WBC 7.24 X 10*3/uL (4.50-10.00)
[2022-04-19 20:15] LABS: African American GFR (CKD) 132.8 (60.0-200.0); Albumin 4.5 g/dL (3.8-4.9); Albumin/Globulin Ratio 1.69 (1.60-3.17); Anion Gap 13.9 mmol/L (10.00-18.00); BUN/Creat Ratio 10.56 Ratio (12.00-20.00); Blood Urea Nitrogen 9.9 mg/dL (9.0-27.0); Calcium 9.4 mg/dL (8.7-10.3); Carbon Dioxide 27.5 mmol/L (20.0-27.5); Globulin 2.6 g/dL (1.6-3.3); Non-African American GFR(CKD) 114.6 (60.0-200.0); Potassium 4.8 mmol/L (3.5-5.5); Total Bilirubin 0.4 mg/dL (0.30-1.20); Total Protein 7.1 g/dL (6.2-8.2)
== END | disposition home or self-care (01) ==
LOC: LABWHC1 09:46
PROVIDERS: ATTEND Psychiatry & Neurology Neurology
DX: G93.49 Other encephalopathy (principal); R41.89 Other symptoms and signs involving cognitive functions and awareness; R29.898 Other symptoms and signs involving the musculoskeletal system; R29.818 Other symptoms and signs involving the nervous system
CPT/HCPCS: 36415; 80053; 82306; 85025

== ENCOUNTER 2022-08-17 15:52 | Emergency (ER) | payer BC, OTHER ==
[2022-08-17 16:04] VITALS: BP 102/66; PULSE 89; RESP 20; TEMP 97.9
--- NOTE | 2022-08-17 16:17 | ED ---
General Adult HPI - General Chief complaint: Wound/Laceration Stated complaint: Bed Sores Time Seen by Provider: 08/17/22 16:11 Source: family Mode of arrival: wheelchair Limitations: altered mental status, physical limitation - History of Present Illness Initial comments: Patient brought to the ED by his parents for evaluation. Patient has cerebral palsy and is bed/wheelchair bound. Per parents, the patient has a history of developing pressure ulcers, and they state that the patient has developed a sacral decubitus pressure ulcer that has been worsening over the past week or so. Father states that he was applying Medihoney to the patient's wound and attempting to keep the patient's wound cushioned, but it has not been helping. They have come to the ED today for advice on wound care and follow-up. Parents deny drainage from the patient's wound, a fever, vomiting, difficulty breathing, mental status changes, or any other symptoms or complaints. - Related Data Home Medications Medication Instructions Recorded Confirmed Baclofen [Lioresal] 30 mg PEG/G-TUBE TID 06/27/16 11/19/16 Rufinamide [Banzel] 1,000 mg PEG/G-TUBE BID 06/27/16 11/19/16 cloBAZam [Onfi] 15 mg PEG/G-TUBE BID 06/27/16 11/19/16 lamoTRIgine [LaMICtal] 400 mg PEG/G-TUBE BID 06/27/16 11/19/16 levETIRAcetam [Keppra] 1,500 mg PEG/G-TUBE HS 06/27/16 11/19/16 levETIRAcetam [Keppra] 2,000 mg PEG/G-TUBE QAM 06/27/16 11/19/16 polyethylene glycoL 3350 [Miralax] 17 - 22 gm PEG/G-TUBE DAILY PRN 06/27/16 11/19/16 Albuterol Nebulized [Ventolin 2.5 mg INHALATION RT-BID PRN 11/19/16 11/19/16 Nebulized] Doxycycline Hyclate [Vibramycin] 100 mg PO BID 11/19/16 11/19/16 Lansoprazole [Prevacid] 30 mg PEG/G-TUBE DAILY 11/19/16 11/19/16 Mupirocin 2% Oint [Bactroban 2% 1 applic TOPICAL DAILY PRN 11/19/16 11/19/16 Oint] Nystatin 100,000Unit/gm Cream 1 applic TOPICAL DAILY PRN 11/19/16 11/19/16 [Mycostatin Cream] Ondansetron [Zofran ODT] 8 mg PO Q8HR PRN 11/19/16 11/19/16 Previous Rx's Medication Instructions Recorded Amoxic-Pot Clav 400-57Mg/5Ml 5 ml PO Q8H #150 bottle 11/19/16 [Augmentin 400-57 mg/5 ml Liquid] Vlhqyuis-Qzwqyrmyxy-Uial Oint 1 applic TOPICAL TID #30 gm 08/17/22 [Triple Antibiotic Ointment] Allergies Allergy/AdvReac Type Severity Reaction Status Date / Time No Known Allergies Allergy Verified 08/17/22 16:04 Review of Systems ROS Statement: Those systems with pertinent positive or pertinent negative responses have been documented in the HPI. Limitations: ROS unobtainable due to patients medical condition Past Medical History Past Medical History: GERD/Reflux, Seizure Disorder Additional Past Medical History / Comment(s): CP, seizure disorder, failure to thrive, feeding tube. non-verbal History of Any Multi-Drug Resistant Organisms: None Reported Past Surgical History: No Surgical Hx Reported Additional Past Surgical History / Comment(s): feeding tube Past Psychological History: No Psychological Hx Reported Smoking Status: Former smoker Past Alcohol Use History: None Reported Past Drug Use History: None Reported General Exam Limitations: no limitations General appearance: alert, in no apparent distress ENT exam: Present: mucous membranes moist Respiratory exam: Present: normal lung sounds bilaterally. Absent: respiratory distress, wheezes, rales, rhonchi, stridor Cardiovascular Exam: Present: regular rate, normal rhythm, normal heart sounds, other (Normal radial pulses bilaterally) GI/Abdominal exam: Present: soft. Absent: distended, tenderness, guarding Extremities exam: Present: other (A stage II midline sacral decubitus ulcer is noted on examination without any evidence of infection/cellulitis). Absent: pedal edema Neurological exam: Present: alert Skin exam: Present: warm, dry, normal color Course Vital Signs 08/17/22 16:02 Temperature 97.9 F Pulse Rate 89 Respiratory 20 Rate Blood Pressure 102/66 O2 Sat by Pulse 100 Oximetry Medical Decision Making - Medical Decision Making Was pt. sent in by a medical professional or institution (CLINT Armendariz, CATERPILLAR OPERATOR, urgent care, hospital, or skilled nursing...) When possible be specific @ -No Did you speak to anyone other than the patient for history (EMS, parent, family, police, friend...)? What history was obtained from this source @ -History was obtained from the patient's parents. Did you review nursing and triage notes (agree or disagree)? Why? @ -I reviewed and agree with nursing and triage notes Were old charts reviewed (outside hosp., previous admission, EMS record, old EKG, old radiological studies, urgent care reports/EKG's, skilled nursing records)? Report findings @ -No old charts were reviewed Differential Diagnosis (chest pain, altered mental status, abdominal pain women, abdominal pain men, vaginal bleeding, weakness, fever, dyspnea, syncope, headache, dizziness, GI bleed, back pain, seizure, CVA, palpatations, mental health, musculoskeletal)? @ -Decubitus ulcer, wound, pressure sore, cellulitis, wound infection EKG interpreted by me (3pts min.). @ -None done X-rays interpreted by me (1pt min.). @ -None done CT interpreted by me (1pt min.). @ -None done U/S interpreted by me (1pt. min.). @ -None done What testing was considered but not performed or refused? (CT, X-rays, U/S, labs)? Why? @ -None What meds were considered but not given or refused? Why? @ -None Did you discuss the management of the patient with other professionals (professionals i.e. CL[facility] Armendariz, CATERPILLAR OPERATOR, lab, RT, psych nurse, social group worker, modern dancer, teacher, marketing officer, returned case inspector)? Give summary @ -No Was smoking cessation discussed for >3mins.? @ -No Was critical care preformed (if so, how long)? @ -No Were there social determinants of health that impacted care today? How? (Homelessness, low income, unemployed, alcoholism, drug addiction, transportation, low edu. Level, literacy, decrease access to med. care, [place] [facility], rehab)? @ -No Was there de-escalation of care discussed even if they declined (Discuss DNR or withdrawal of care, Hospice)? DNR status @ -No What co-morbidities impacted this encounter? (DM, HTN, Smoking, COPD, CAD, Cancer, CVA, ARF, Chemo, Hep., AIDS, mental health diagnosis, sleep apnea, morbid obesity)? @ -Cerebral palsy Was patient admitted / discharged? Hospital course, mention meds given and route, prescriptions, significant lab abnormalities, going to OR and other pert inent info. @ -Patient has a stage II sacral decubitus ulcer on examination without any evidence of infection/cellulitis. I have discussed wound care with the patient's parents. Patient's wound was dressed with triple antibiotic ointment and an ABD pad was applied in the ED. Will also provide ABD pads for the patient's parents to go home with. I have also provided a prescription for triple antibiotic ointment, which I have instructed the patient's parents to apply with dressing changes. I have also advised avoiding pressure on the area of the patient's wound by frequent position changes and use of padding/cushions. I have recommended that the patient follow up closely with his primary care provider for wound care clinic referral. Patient's parents were counseled about decubitus ulcers and wound care, and they were clearly explained return and follow-up instructions. They feel comfortable with this plan. Undiagnosed new problem with uncertain prognosis? @ -No Drug Therapy requiring intensive monitoring for toxicity (Heparin, Nitro, Insulin, Cardizem)? @ -No Were any procedures done? @ -No Diagnosis/symptom? @ -Stage II sacral decubitus ulcer Acute, or Chronic, or Acute on Chronic? @ -Acute Uncomplicated (without systemic symptoms) or Complicated (systemic symptoms)? @ -Uncomplicated Side effects of treatment? @ -No Exacerbation, Progression, or Severe Exacerbation? @ -No Poses a threat to life or bodily function? How? (Chest pain, USA, ID, pneumonia, PE, COPD, DKA, ARF, appy, cholecystitis, CVA, Diverticulitis, Homicidal, Suicidal, threat to staff... and all critical care pts) @ -No Disposition Clinical Impression: Sacral decubitus ulcer, stage II Disposition: HOME SELF-CARE Condition: Stable Instructions (If sedation given, give patient instructions): How to Prevent Pressure Injuries (ED), Acute Wound Care (ED) Additional Instructions: Return to the ER immediately should Rafat develop a worsening wound, redness around his wound, drainage of pus from his wound, a fever, vomiting, difficulty breathing, or new or worsening symptoms. Have Rafat follow up closely with his primary care provider. Prescriptions: Akgtikuv-Grvmwphqsa-Oujf Oint [Triple Antibiotic Ointment] 1 applic TOPICAL TID #30 gm Is patient prescribed a controlled substance at d/c from ED?: No When asked, does pt state using other controlled substances?: No Referrals: Kirk Avalos MD [Primary Care Provider] - 1-2 days Juana Mirza MD [STAFF PHYSICIAN] - 1-2 days Time of Disposition: 16:44
[2022-08-17] MEDS ORDERED: NEOMYCIN-BACITRACIN-POLY OINT 14 GM TUBE TOPICAL STA (16:36)
== END 2022-08-17 17:03 | disposition home or self-care (01) ==
LOC: EC 15:52 → EEVIPCON 15:52 → EC 17:03
DX: L89.92 Pressure ulcer of unspecified site, stage 2 (principal); K21.9 Gastro-esophageal reflux disease without esophagitis; Z79.899 Other long term (current) drug therapy; Z87.891 Personal history of nicotine dependence
CPT/HCPCS: 99282

== ENCOUNTER 2023-01-05 21:48 | Emergency (ER) | payer BC, OTHER ==
[2023-01-05 22:01] VITALS: BP 103/67; PULSE 69; RESP 18; TEMP 97.5
[2023-01-05 23:40] LABS: Appearance,Urine Clear (Clear); Bilirubin,Urine Negative (Negative); Blood,Urine Negative (Negative); Color,Urine Light Yellow; Glucose,Urine (UA) Negative (Negative); Ketones,Urine Negative (Negative); Leukocyte Esterase,Urine Negative (Negative); Nitrite,Urine Negative (Negative); PH, Urine 6.5 (5.0-8.0); Protein,Urine Negative (Negative); Specific Gravity,Urine 1.015 (1.001-1.035); Urobilinogen,Urine <2.0 mg/dL (<2.0)
--- NOTE | 2023-01-05 23:51 | ED ---
Recheck HPI - General Chief Complaint: Recheck/Abnormal Lab/Rx Stated Complaint: Urinary issues Time Seen by Provider: 01/05/23 22:26 Source: family Mode of arrival: ambulatory Limitations: language barrier - History of Present Illness Initial Comments: 22-year-old male with history of cerebral palsy brought in by his parents with concerns for urinary retention. Patient is nonverbal. Patient has had no urinary output in about 48 hours. Parents state that it is normal for him to go about one whole day without urinary output and has a large onetime output. They state that there have been occasional times in the past where he required straight catheterization. Parents state his abdomen appears distended due to urinary retention. Parents state he has been acting consistent with baseline. No fevers, chills, vomiting. - Related Data Home Medications Medication Instructions Recorded Confirmed Baclofen [Lioresal] 30 mg PEG/G-TUBE TID 06/27/16 11/19/16 Rufinamide [Banzel] 1,000 mg PEG/G-TUBE BID 06/27/16 11/19/16 cloBAZam [Onfi] 15 mg PEG/G-TUBE BID 06/27/16 11/19/16 lamoTRIgine [LaMICtal] 400 mg PEG/G-TUBE BID 06/27/16 11/19/16 levETIRAcetam [Keppra] 1,500 mg PEG/G-TUBE HS 06/27/16 11/19/16 levETIRAcetam [Keppra] 2,000 mg PEG/G-TUBE QAM 06/27/16 11/19/16 polyethylene glycoL 3350 [Miralax] 17 - 22 gm PEG/G-TUBE DAILY PRN 06/27/16 11/19/16 Albuterol Nebulized [Ventolin 2.5 mg INHALATION RT-BID PRN 11/19/16 11/19/16 Nebulized] Doxycycline Hyclate [Vibramycin] 100 mg PO BID 11/19/16 11/19/16 Lansoprazole [Prevacid] 30 mg PEG/G-TUBE DAILY 11/19/16 11/19/16 Mupirocin 2% Oint [Bactroban 2% 1 applic TOPICAL DAILY PRN 11/19/16 11/19/16 Oint] Nystatin 100,000Unit/gm Cream 1 applic TOPICAL DAILY PRN 11/19/16 11/19/16 [Mycostatin Cream] Ondansetron [Zofran ODT] 8 mg PO Q8HR PRN 11/19/16 11/19/16 Previous Rx's Medication Instructions Recorded Amoxic-Pot Clav 400-57Mg/5Ml 5 ml PO Q8H #150 bottle 11/19/16 [Augmentin 400-57 mg/5 ml Liquid] Rucrivea-Kocipxhjtq-Pvay Oint 1 applic TOPICAL TID #30 gm 08/17/22 [Triple Antibiotic Ointment] Allergies Allergy/AdvReac Type Severity Reaction Status Date / Time No Known Allergies Allergy Verified 08/17/22 16:04 Review of Systems ROS Statement: Those systems with pertinent positive or pertinent negative responses have been documented in the HPI. ROS Other: All systems not noted in ROS Statement are negative. Past Medical History Past Medical History: GERD/Reflux, Seizure Disorder Additional Past Medical History / Comment(s): CP, seizure disorder, failure to thrive, feeding tube. non-verbal History of Any Multi-Drug Resistant Organisms: None Reported Past Surgical History: No Surgical Hx Reported Additional Past Surgical History / Comment(s): feeding tube Past Psychological History: No Psychological Hx Reported Smoking Status: Former smoker, Never smoker Past Alcohol Use History: None Reported Past Drug Use History: None Reported General Exam Limitations: language barrier General appearance: alert, in no apparent distress Head exam: Present: atraumatic, normocephalic, normal inspection Eye exam: Present: normal appearance, EOMI Neck exam: Present: normal inspection, full ROM Respiratory exam: Absent: respiratory distress GI/Abdominal exam: Present: distended Neurological exam: Present: alert Course Vital Signs 01/05/23 21:56 Temperature 97.5 F L Pulse Rate 69 Respiratory 18 Rate Blood Pressure 103/67 O2 Sat by Pulse 99 Oximetry Medical Decision Making - Medical Decision Making Was pt. sent in by a medical professional or institution (, PA, POLICE OFFICER, urgent care, hospital, or group home...) When possible be specific @ -No Did you speak to anyone other than the patient for history (EMS, parent, family, police, friend...)? What history was obtained from this source @ -History obtained from parents Did you review nursing and triage notes (agree or disagree)? Why? @ -I reviewed and agree with nursing and triage notes Were old charts reviewed (outside hosp., previous admission, EMS record, old EKG, old radiological studies, urgent care reports/EKG's, group home records)? Report findings @ -No old charts were reviewed Differential Diagnosis (chest pain, altered mental status, abdominal pain women, abdominal pain men, vaginal bleeding, weakness, fever, dyspnea, syncope, headache, dizziness, GI bleed, back pain, seizure, CVA, palpatations, mental health, musculoskeletal)? @ -Differential includes urinary retention, UTI, neurogenic bladder, obstruction, this is not an all-inclusive list EKG interpreted by me (3pts min.). @ -As above X-rays interpreted by me (1pt min.). @ -None done CT interpreted by me (1pt min.). @ -None done U/S interpreted by me (1pt. min.). @ -None done What testing was considered but not performed or refused? (CT, X-rays, U/S, labs)? Why? @ -None What meds were considered but not given or refused? Why? @ -None Did you discuss the management of the patient with other professionals (professionals i.e. , PA, POLICE OFFICER, lab, RT, psych nurse, social insurance analyst, church history teacher, teacher, youth officer, medical case worker)? Give summary @ -No Was smoking cessation discussed for >3mins.? @ -No Was critical care preformed (if so, how long)? @ -No Were there social determinants of health that impacted care today? How? (Homelessness, low income, unemployed, alcoholism, drug addiction, transportation, low edu. Level, literacy, decrease access to med. care, snf, rehab)? @ -No Was there de-escalation of care discussed even if they declined (Discuss DNR or withdrawal of care, Hospice)? DNR status @ -No What co-morbidities impacted this encounter? (DM, HTN, Smoking, COPD, CAD, Cancer, CVA, ARF, Chemo, Hep., AIDS, mental health diagnosis, sleep apnea, morbid obesity)? @ -None Was patient admitted / discharged? Hospital course, mention meds given and route, prescriptions, significant lab abnormalities, going to OR and other pertinent info. @ -22-year-old male with cerebral palsy brought in by his parents is presenting with chief complaint of urinary retention. Physical examination is conducted. Patient is straight catheterized, about 500 mL output. Patient then had beau roximately 200 mL output on his own. Urine is negative for infectious process. Discharged home in stable condition. Follow-up with PCP. Report back to ER with any new or worsening symptoms. Discussed return parameters and answered all questions. Patient conveyed verbal understanding and agreed to the plan. I discussed this case in detail with my attending Dr. Patel Undiagnosed new problem with uncertain prognosis? @ -No Drug Therapy requiring intensive monitoring for toxicity (Heparin, Nitro, Insulin, Cardizem)? @ -No Were any procedures done? @ -No Diagnosis/symptom? @ -Urinary retention Acute, or Chronic, or Acute on Chronic? @ -Acute Uncomplicated (without systemic symptoms) or Complicated (systemic symptoms)? @ -Uncomplicated Side effects of treatment? @ -No Exacerbation, Progression, or Severe Exacerbation? @ -No Poses a threat to life or bodily function? How? (Chest pain, [place], [place], pneumonia, PE, COPD, DKA, ARF, appy, cholecystitis, CVA, Diverticulitis, Homicidal, Suicidal, threat to staff... and all critical care pts) @ -No - Lab Data Lab Results 01/05/23 Range/Units 23:31 Urine Color Light Yellow Urine Appearance Clear (Clear) Urine pH 6.5 (5.0-8.0) Ur Specific [place] 1.015 (1.001-1.035) Urine Protein Negative (Negative) Urine Glucose (UA) Negative (Negative) Urine Ketones Negative (Negative) Urine Blood Negative (Negative) Urine Nitrite Negative (Negative) Urine Bilirubin Negative (Negative) Urine Urobilinogen <2.0 (<2.0) mg/dL Ur Leukocyte Esterase Negative (Negative) Disposition Clinical Impression: Urinary retention Disposition: HOME SELF-CARE Condition: Good Instructions (If sedation given, give patient instructions): Urinary Retention in Men (ED) Additional Instructions: Follow-up with PCP. Report back to ER with any new or worsening symptoms. Is patient prescribed a controlled substance at d/c from ED?: No Referrals: Kirk Avalos MD [Primary Care Provider] - 1-2 days Time of Disposition: 23:51
== END 2023-01-06 00:02 | disposition home or self-care (01) ==
LOC: EC 21:48
DX: R33.9 Retention of urine, unspecified (principal); K21.9 Gastro-esophageal reflux disease without esophagitis; Z87.891 Personal history of nicotine dependence; Z79.899 Other long term (current) drug therapy
CPT/HCPCS: 81003; 99283

== ENCOUNTER → 2023-03-10 | Outpatient (CLI) | payer BC, OTHER ==
[2023-03-11 02:49] LABS: Basophils # (A) 0.05 X 10*3/uL (0.00-0.10); Basophils % (A) 1.1 %; Eosinophils # (A) 0.46 X 10*3/uL (0.04-0.35); Eosinophils % (A) 9.9 %; HCT 42.2 % (39.6-50.0); HGB 14.1 g/dL (13.0-17.0); Lymphocytes # (A) 1.79 X 10*3/uL (0.90-5.00); Lymphocytes % (A) 38.7 %; MCH 31.6 pg (27.0-32.0); MCHC 33.4 g/dL (32.0-37.0); MCV 94.6 FL (80.0-97.0); Mean Platelet Volume 12.7 FL (9.5-12.2); Monocytes # (A) 0.59 X 10*3/uL (0.20-1.00); Monocytes % (A) 12.7 %; NRBC Per 100 WBC 0 X 10*3/uL (0.00-0.01); Neutrophils # (A) 1.73 X 10*3/uL (1.80-7.70); Neutrophils % (A) 37.4 %; Platelet Count 194 X 10*3/uL (140-440); RBC 4.46 X 10*6/uL (4.40-5.60); RDW 13.2 % (11.5-14.5); WBC 4.63 X 10*3/uL (4.50-10.00)
[2023-03-11 03:04] LABS: Chol/HDL Ratio 2.51 Ratio; LDL Cholesterol,Calculated 57.5 mg/dL (0.0-131.0); VLDL Calculation 7.54 mg/dL (5.00-40.00)
[2023-03-11 03:17] LABS: ALT 36 U/L (10-49); AST 26 U/L (14-35); Albumin 4.2 g/dL (3.8-4.9); Albumin/Globulin Ratio 1.56 Ratio (1.60-3.17); Alkaline Phosphatase 76 U/L (41-126); Blood Urea Nitrogen 11.9 mg/dL (9.0-27.0); Calcium 9.4 mg/dL (8.7-10.3); Carbon Dioxide 26.7 mmol/L (21.6-31.8); Chloride 100 mmol/L (96-109); Globulin 2.7 g/dL (1.6-3.3); Glucose 89 mg/dL (70-110); Potassium 4.9 mmol/L (3.5-5.5); Sodium 138 mmol/L (135-145); Total Bilirubin 0.3 mg/dL (0.3-1.2); Total Protein 6.9 g/dL (6.2-8.2)
== END | disposition home or self-care (01) ==
LOC: LABWHC1 12:47
PROVIDERS: ATTEND Psychiatry & Neurology Neurology
DX: G80.0 Spastic quadriplegic cerebral palsy (principal); G40.109 Localization-related (focal) (partial) symptomatic epilepsy and epileptic syndromes with simple partial seizures, not intractable, without status epilepticus; G93.49 Other encephalopathy; R29.818 Other symptoms and signs involving the nervous system
CPT/HCPCS: 36415; 80053; 80061; 82306; 85025

== ENCOUNTER → 2023-06-13 | Outpatient (CLI) | payer BC, OTHER ==
[2023-06-13 15:39] LABS: Chol/HDL Ratio 3.37 Ratio
== END | disposition home or self-care (01) ==
LOC: LABWHC1 08:44
PROVIDERS: ATTEND Psychiatry & Neurology Neurology
DX: G80.0 Spastic quadriplegic cerebral palsy (principal); G40.109 Localization-related (focal) (partial) symptomatic epilepsy and epileptic syndromes with simple partial seizures, not intractable, without status epilepticus; G93.49 Other encephalopathy; R29.818 Other symptoms and signs involving the nervous system
CPT/HCPCS: 36415; 80061

== ENCOUNTER 2023-11-30 22:56 | Inpatient (IN) | payer BC, OTHER ==
[~2023-11-30 22:56] MED LIST: AZITHROMYCIN 500 MG VIAL IVPB ONE; cefTRIAXone IN SWFI 1,000 MG/10 ML SYRINGE IVP ONE
[2023-12-01] MEDS ORDERED: PIPERACILLIN-TAZOBACTAM 3.375 GM VIAL ONE ×3 (09:43→19:00)
[2023-12-01] MEDS ORDERED: FAMOTIDINE 20 MG/2 ML VIAL ONE ×2 (09:44→20:31)
[2023-12-01] MEDS ORDERED: HEPARIN SODIUM,PORCINE 5,000 UNIT/ML 1 ML VIAL ONE (20:30)
[2023-12-01] MEDS ORDERED: levETIRAcetam 500 MG TAB ONE (20:30)
[2023-12-01] MEDS ORDERED: BACLOFEN 10 MG TAB ONE (20:30)
[2023-12-01] MEDS ORDERED: SODIUM CHLORIDE 0.9% 100 ML BAG ONE (23:59)
[2023-12-01] MEDS ORDERED: DEXTROSE 5%-0.9% NACL 1,000 ML BAG IV ONE (23:59)
[2023-12-02] MEDS ORDERED: PIPERACILLIN-TAZOBACTAM 3.375 GM VIAL ONE ×3 (03:31→18:42)
[2023-12-02] MEDS ORDERED: HEPARIN SODIUM,PORCINE 5,000 UNIT/ML 1 ML VIAL ONE ×2 (08:37→20:07)
[2023-12-02] MEDS ORDERED: FAMOTIDINE 20 MG/2 ML VIAL ONE ×2 (08:37→20:08)
[2023-12-02] MEDS ORDERED: levETIRAcetam 500 MG TAB ONE ×2 (08:37→19:07)
[2023-12-02] MEDS ORDERED: BACLOFEN 10 MG TAB ONE ×2 (08:37→19:07)
[2023-12-02] MEDS ORDERED: LACTULOSE 20 GM/30 ML CUP ONE ×2 (12:05→19:06)
[2023-12-02] MEDS ORDERED: SODIUM CHLORIDE 0.9% 100 ML BAG IV ONE (23:59)
[2023-12-02] MEDS ORDERED: DEXTROSE 5%-0.9% NACL 1,000 ML BAG IV ONE (23:59)
[2023-12-03] MEDS ORDERED: PIPERACILLIN-TAZOBACTAM 3.375 GM VIAL ONE (03:40)
[2023-12-03] MEDS ORDERED: HEPARIN SODIUM,PORCINE 5,000 UNIT/ML 1 ML VIAL ONE (09:18)
[2023-12-03] MEDS ORDERED: FAMOTIDINE 20 MG/2 ML VIAL ONE (09:18)
[2023-12-03] MEDS ORDERED: BACLOFEN 10 MG TAB ONE ×2 (09:18→17:34)
[2023-12-03] MEDS ORDERED: LACTULOSE 20 GM/30 ML CUP ONE ×2 (09:18→17:34)
[2023-12-03] MEDS ORDERED: levETIRAcetam 500 MG TAB ONE ×2 (09:21→17:34)
[2023-12-03] MEDS ORDERED: AMOXIC-POT CLAV 200-28.5MG/5ML 100 ML BOTTLE ONE (23:59)
[2023-12-03] MEDS ORDERED: SODIUM CHLORIDE 0.9% 100 ML BAG ONE (23:59)
[2023-12-04] MEDS ORDERED: LACTULOSE 20 GM/30 ML CUP ONE (09:16)
--- NOTE | 2023-12-30 21:35 | XR ---
EXAMINATION TYPE: XR chest 1V portable DATE OF EXAM: 12/30/2023 COMPARISON: 1124 INDICATION: Pneumonia TECHNIQUE: Single frontal view of the chest is obtained. Patient is rotated to the left. FINDINGS: The heart size is normal. The pulmonary vasculature is normal. The lungs are clear. IMPRESSION: 1. No acute pulmonary process.
--- NOTE | 2024-01-01 09:48 | CT ---
EXAM: CT Abdomen and Pelvis With Intravenous Contrast CLINICAL HISTORY: sepsis. TECHNIQUE: Axial computed tomography images of the abdomen and pelvis with intravenous contrast. CTDI is 12.4 mGy and DLP is 582.9 mGy-cm. This CT exam was performed using one or more of the following dose reduction techniques: automated exposure control, adjustment of the mA and/or kV according to patient size, and/or use of iterative reconstruction technique. COMPARISON: No relevant prior studies available. FINDINGS: Lung bases:Atelectasis at the lung bases. ABDOMEN: Liver:Unremarkable. No mass. Gallbladder and bile ducts:Unremarkable. No calcified stones. No ductal dilation. Pancreas:Unremarkable. No mass. No ductal dilation. Spleen:Unremarkable. No splenomegaly. Adrenals:Unremarkable. No mass. Kidneys and ureters:Unremarkable. No solid mass. No hydronephrosis. Stomach and bowel: Large volume retention, concerning for constipation. No mucosal thickening. PELVIS: Appendix:No findings to suggest acute appendicitis. Bladder:Unremarkable. No mass. Reproductive:Unremarkable as visualized. ABDOMEN and PELVIS: Intraperitoneal space:Unremarkable. No free air. No significant fluid collection. Bones/joints:No acute fracture. No dislocation. Soft tissues:Unremarkable. Vasculature:Unremarkable. No abdominal aortic aneurysm. Lymph nodes:Unremarkable. No enlarged lymph nodes. Tubes, lines and devices: PEG tube in the stomach. IMPRESSION: Large volume retention, concerning for constipation. Radiologist: Dakota Tran MD Electronically Signed: 12/01/23 00:13 Study ready at 22:13 and initial results transmitted at 00:13 [facility]
--- NOTE | 2024-01-02 10:13 | PN ---
PROGRESS NOTE This is a patient that was seen in room 360 at the time of my evaluation. SUBJECTIVE: The patient has cerebral palsy and is unable to provide information; however, to my appearance, he appears to be more interactive, awake, and directable than upon my initial evaluation while he was in the emergency room. Overall, the patient seems to be significantly improved and is now saturating well on room air. OBJECTIVE: VITAL SIGNS: He is afebrile, 90/52, heart rate 67, 96% on room air. GENERAL: He is in no apparent distress, sitting comfortably in his wheelchair. RESPIRATORY: Symmetric chest expansion without accessory muscle use. CARDIOVASCULAR: No pitting edema, perfusing all extremities well. DATA: No labs are available to review today. No images are available to review today. ASSESSMENT/PLAN: 1. Septic shock secondary to aspiration pneumonia: The patient has recovered quite well without any pressors and was fluid responsive to IV lactated Ringer's. He was initially on Zosyn and then transitioned over to Augmentin and continues to have a good response. The patient did have notable secretions, which are being followed by his mother closely. 2. Constipation: The patient received an enema yesterday. According to Nursing, he responded well and had a bowel movement and is progressing well. Anticipate discharge tomorrow morning. MMODL / IJN: [id number] /
--- NOTE | 2024-01-06 13:59 | XR ---
[id number] GRACY ANDERSON : 2000 EXAM: Single view of the chest. DATE: 11/30/2023 21:10 INDICATION: Fever COMPARISON: None, please note PACS downtime occurred during the radiologist interpretation of these i mages with limited priors/reports.. TECHNIQUE: Frontal view of the chest. FINDINGS: Rotated exam. Lungs/Pleura: There is no evidence of pleural effusion, focal consolidation, or pneumothorax. Pulmonary vascularity: Unremarkable. Heart/mediastinum: Cardiomediastinal silhouette is unremarkable. Musculoskeletal: No acute osseous pathology. Other findings: No significant findings. IMPRESSION: Limited rotated exam there may be left perihilar airspace opacities present. [facility], , 01/06/2024 1:56 PM
--- NOTE | 2024-01-16 15:13 | HP ---
HISTORY AND PHYSICAL The patient was seen in trauma 3 at the time of my evaluation. HISTORY OF PRESENT ILLNESS: This is a 23-year-old gentleman with a past medical history of seizure disorder, cerebral palsy who was brought in by his parents for evaluation of lethargy, loss of appetite. According to his parents, the patient has been experiencing increased episodes of lethargy over the last 2 days, has not been eating much per his usual oral intake. He has also had several episodes of violent shakes according to his Mom. Based on the fact that the patient was not improving over the last 48 hours, the patient's parents subsequently brought him into the hospital for further evaluation. Review of systems could not be completed due to the patient's medical condition and mental status at baseline. In the emergency room, the patient was febrile up to 103, after 3 L of with a heart rate of 110, was 86% on room air, now improved to 94% with 2 L of nasal cannula. His initial workup demonstrated leukocytosis at 12.5. Basic metabolic panel showed mildly increased creatinine at 1.1, was otherwise unremarkable. Liver function tests showed AST of 40, ALT of 37, alkaline phosphatase of 64, otherwise unremarkable. unremarkable. Lactic acid was notable at 4.8. TSH is 0.47. Free T4 is 1.3. CRP was less than 0.5. The patient did have a chest x-ray which demonstrated left perihilar airspace opacity as well as retrocardiac opacity. REVIEW OF SYSTEMS: Not completed due to the patient's mental status. PHYSICAL EXAMINATION: GENERAL: In general, the patient appears lethargic but is arousable to touch, does not appear in acute distress, does appear mildly toxic. RESPIRATORY: There are coarse rhonchi in the left lower lobe, a few coarse rhonchi in the right lower lobe, otherwise unremarkable. CARDIOVASCULAR EXAM: Regular rate and rhythm. No appreciable murmurs. GASTROINTESTINAL EXAM: Abdomen is soft, nontender to palpation. There is a PEG tube with mild surrounding erythema, which parents say is always present and no worse than usual. GENITOURINARY: No appreciable suprapubic tenderness or costovertebral angle tenderness. NEUROLOGICAL EXAM: The patient has upper extremity contractures, overall quadriplegic. LABS AND IMAGING: Reviewed, as seen in the HPI. ASSESSMENT/PLAN: 1. Septic shock secondary to aspiration pneumonia. The patient was Zosyn, azithromycin after receiving ceftriaxone, azithromycin in the emergency room. Procalcitonin is pending. Continue IV fluids with D5/normal saline at 100 mL/h, as the patient appears to be fluid responsive. Follow up lactic acid to ensure improvement. The patient was initially meant to go to the ICU; however, due to improvement in his clinical picture by the time of my evaluation, the patient was subsequently stepped down to the cardiac . Follow up labs in the morning. Blood cultures are pending. Consideration of speech therapy consult for aspiration pneumonia in the setting of the PEG tube. Dietitian consult is recommended but deferred to Day Team depending on how long the patient will be hospitalized. 2. Seizure disorder, cerebral palsy. The patient's home medications were brought in by the patient's mother. Once they were verified by anesthesiology medical doctor, they can be resumed with no adjustments in antibiotics. 3. This patient is full code. DVT prophylaxis can be done with lower dose Lovenox 30 mg subcu, defer to the Day Team to start this. MMODL / IJN: [id number] /
--- NOTE | 2024-01-16 15:13 | DS ---
DISCHARGE SUMMARY The patient was seen in room 360 at the time of my evaluation. DISCHARGE DIAGNOSES: Include: 1. Severe sepsis with aspiration pneumonia. 2. Cerebral palsy. 3. Seizure disorder. HOSPITAL COURSE: This patient was admitted with signs of severe sepsis and hypotension that was fluid responsive, was initiated on broad-spectrum antibiotics and had Pulmonary consultation. After following the patient through his hospital course, antibiotics seem to improve the patient's condition rather quickly, but he was also noted to be constipated and required several rounds of bowel regimen and ultimately required subsets enema prior to starting to stool on his own. The patient was discharged with an addition of 5 days of Augmentin to complete course of antibiotics for aspiration pneumonia with severe sepsis. The patient should follow up with primary care physician as well as Neurology for ongoing care. This was discussed with his mother in great detail upon discharge. PHYSICAL EXAMINATION: VITAL SIGNS: On the day of discharge; the patient was afebrile, 92/59, heart rate was 66, 95% on room air. GENERAL: The patient was in no apparent distress. RESPIRATORY: The patient continues to have significant secretions, but had symmetric chest expansion and is not using accessory muscles. EXTREMITIES: The patient has no pitting edema, but he has evidence of good perfusion to all extremities. GASTROINTESTINAL: Demonstrates a PEG tube with some mild surrounding erythema, but does not appear infected, appears clean. MMODL / IJN: [id number] /
== END 2023-12-05 16:06 | disposition home or self-care (01) | DRG 871 ==
LOC: DISRECOVER 22:56 → UNDOADMIN 12-01 16:40 → DISRECOVER 12-01 16:40 → UNDODISIN 12-05 16:06
PROVIDERS: ADMIT Internal Medicine; ATTEND Internal Medicine
PROC: 3E0G76Z Introduction of Nutritional Substance into Upper GI, Via Natural or Artificial Opening (ICD-10-PCS; principal; 2023-12-01)
DX: A41.9 Sepsis, unspecified organism (principal); G93.41 Metabolic encephalopathy; J69.0 Pneumonitis due to inhalation of food and vomit; R65.21 Severe sepsis with septic shock; E87.20 Acidosis, unspecified; K59.00 Constipation, unspecified; F79 Unspecified intellectual disabilities; K21.9 Gastro-esophageal reflux disease without esophagitis; G40.909 Epilepsy, unspecified, not intractable, without status epilepticus; Z87.440 Personal history of urinary (tract) infections; G80.9 Cerebral palsy, unspecified; Z74.01 Bed confinement status; K94.29 Other complications of gastrostomy; Z53.29 Procedure and treatment not carried out because of patient's decision for other reasons
CPT/HCPCS: 71045; 74177; 84481; 85652; 87040; 87086; 96365; 96367; 96375; 99291; 99292

== ENCOUNTER → 2024-01-06 | Outpatient (CLI) | payer BC, OTHER ==
[2024-01-06 15:36] LABS: Basophils # (A) 0.08 X 10*3/uL (0.00-0.10); Basophils % (A) 1.1 %; Eosinophils # (A) 0.68 X 10*3/uL (0.04-0.35); Eosinophils % (A) 9.7 %; HCT 43.9 % (39.6-50.0); HGB 14.3 g/dL (13.0-17.0); Lymphocytes # (A) 2.01 X 10*3/uL (0.90-5.00); Lymphocytes % (A) 28.8 %; MCH 30.6 pg (27.0-32.0); MCHC 32.6 g/dL (32.0-37.0); Mean Platelet Volume 11.9 FL (9.5-12.2); Monocytes # (A) 0.69 X 10*3/uL (0.20-1.00); Monocytes % (A) 9.9 %; NRBC Per 100 WBC 0 X 10*3/uL (0.00-0.01); Neutrophils # (A) 3.51 X 10*3/uL (1.80-7.70); Neutrophils % (A) 50.4 %; Platelet Count 215 X 10*3/uL (140-440); RBC 4.67 X 10*6/uL (4.40-5.60); RDW 13.1 % (11.5-14.5); WBC 6.98 X 10*3/uL (4.50-10.00)
[2024-01-06 15:55] LABS: ALT 38 U/L (10-49); AST 17 U/L (14-35); Albumin 4.2 g/dL (3.8-4.9); Albumin/Globulin Ratio 1.75 Ratio (1.60-3.17); Alkaline Phosphatase 72 U/L (41-126); BUN/Creat Ratio 13.75 Ratio (12.00-20.00); Calcium 9.4 mg/dL (8.7-10.3); Chloride 101 mmol/L (96-109); Globulin 2.4 g/dL (1.6-3.3); Glucose 103 mg/dL (70-110); Potassium 4.3 mmol/L (3.5-5.5); Sodium 141 mmol/L (135-145); Total Bilirubin <0.2 mg/dL (0.3-1.2); Total Protein 6.6 g/dL (6.2-8.2)
== END | disposition home or self-care (01) ==
LOC: LABWHC1 08:37
PROVIDERS: ATTEND Psychiatry & Neurology Neurology
DX: G93.49 Other encephalopathy (principal); G40.109 Localization-related (focal) (partial) symptomatic epilepsy and epileptic syndromes with simple partial seizures, not intractable, without status epilepticus; R29.818 Other symptoms and signs involving the nervous system; R29.898 Other symptoms and signs involving the musculoskeletal system
CPT/HCPCS: 36415; 80053; 82306; 85025

== ENCOUNTER → 2024-09-28 | Outpatient (CLI) | payer BC, OTHER ==
[2024-09-28 16:36] LABS: Basophils # (A) 0.07 10*3/uL (0.00-0.10); Basophils % (A) 0.9 %; Eosinophils # (A) 0.52 10*3/uL (0.04-0.35); Eosinophils % (A) 6.6 %; HCT 45.4 % (39.6-50.0); HGB 15.2 g/dL (13.0-17.0); Immature Platelet Fraction 5.3 % (1.1-6.1); Lymphocytes # (A) 2.08 10*3/uL (0.90-5.00); Lymphocytes % (A) 26.3 %; MCH 31.1 pg (27.0-32.0); MCHC 33.5 g/dL (32.0-37.0); Mean Platelet Volume 11.3 fL (9.5-12.2); Monocytes % (A) 12.6 %; Neutrophils # (A) 4.23 10*3/uL (1.80-7.70); Neutrophils % (A) 53.3 %; Platelet Count 213 10*3/uL (140-440); RBC 4.88 10*6/uL (4.40-5.60); RDW 12.9 % (11.5-14.5); WBC 7.92 10*3/uL (4.50-10.00)
[2024-09-28 21:55] LABS: Chol/HDL Ratio 3.58 Ratio; LDL Cholesterol,Calculated 87.1 mg/dL (0.0-131.0); VLDL Calculation 10.86 mg/dL (5.00-40.00)
[2024-09-28 22:31] LABS: ALT 34 U/L (10-49); AST 25 U/L (14-35); Albumin 4.2 g/dL (3.8-4.9); Albumin/Globulin Ratio 1.56 Ratio (1.60-3.17); Alkaline Phosphatase 83 U/L (41-126); BUN/Creat Ratio 11.75 Ratio (12.00-20.00); Blood Urea Nitrogen 9.4 mg/dL (9.0-27.0); Calcium 9.1 mg/dL (8.7-10.3); Carbon Dioxide 24.6 mmol/L (21.6-31.8); Chloride 102 mmol/L (96-109); Globulin 2.7 g/dL (1.6-3.3); Glucose 90 mg/dL (70-110); Potassium 4.8 mmol/L (3.5-5.5); Sodium 141 mmol/L (135-145); Total Bilirubin <0.2 mg/dL (0.3-1.2); Total Protein 6.9 g/dL (6.2-8.2)
== END | disposition home or self-care (01) ==
LOC: LABWHC1 15:32
PROVIDERS: ATTEND Psychiatry & Neurology Neurology
DX: G93.49 Other encephalopathy (principal); G40.109 Localization-related (focal) (partial) symptomatic epilepsy and epileptic syndromes with simple partial seizures, not intractable, without status epilepticus; R29.818 Other symptoms and signs involving the nervous system; R29.898 Other symptoms and signs involving the musculoskeletal system
CPT/HCPCS: 36415; 80053; 80061; 82306; 85025